=== PATIENT | female | born 1985 | race Caucasian/White ===

== ENCOUNTER 2017-12-19 16:09 | Emergency (ER) | payer BC ==
[2017-12-19 17:09] LABS: ABS Basophils 0.1 10^3/ul (0-0.2); ABS Eosinophils 0.2 10^3/ul (0-0.6); ABS Lymphocytes 2.6 10^3/ul (1.0-4.8); ABS Monocytes 0.6 10^3/ul (0-0.8); ABS Neutrophils 6.4 10^3/ul (1.5-7.7); ABS Nucleated RBC 0 10^3/ul; Eosinophil % 1.8 % (0-6); Hematocrit 43 % (35-47); Hemoglobin 14.6 g/dl (12.0-16.0); Lymphocyte % 26.2 % (25-47); Mean Corpuscular HGB Conc 34 g/dl (31-36); Mean Corpuscular Hemoglobin 30 pg (27-31); Mean Corpuscular Volume 89 fL (80-97); Mean Platelet Volume 7.5 um3 (7.4-10.4); Nucleated Red Blood Cells % 0; Platelet Count 323 10^3/ul (150-450); Red Blood Count 4.83 10^6/ul (4.0-5.4); Red Cell Distribution Width 13 % (10.5-15); White Blood Count 9.9 10^3/ul (3.5-10.8)
[2017-12-19 17:26] LABS: EGFR Non-African American 86.7 (>60)
[2017-12-19 17:31] LABS: INR 1.03 (0.77-1.02)
[2017-12-19 17:39] LABS: Urine Appearance Clear; Urine Blood Negative (Negative); Urine Color Colorless; Urine Ketones Negative (Negative); Urine Protein Negative (Negative); Urine Specific Gravity 1.003 (1.010-1.030); Urine Urobilinogen Negative (Negative)
--- NOTE | 2017-12-19 18:22 | RAD ---
Indication: Chest pain. 2 views of the chest demonstrate no mediastinal shift. Heart is of normal size and configuration. Lung boland are clear. When compared to previous exam of May 13, 2016 no significant change is noted. IMPRESSION: No active cardiopulmonary disease is noted.
[2017-12-19 20:47] VITALS: BP 152/93
[2017-12-19] MEDS ORDERED: Lidocaine 2% VISCOUS* 15 ML UDC PO ONE (20:48)
[2017-12-19] MEDS ORDERED: LORazepam TAB(*) 1 MG PO ONE (20:48)
[2017-12-19] MEDS ORDERED: Al Hydrox/Mg Hydrox/Simet LIQ* 30 ML UDC PO ONE (20:48)
--- NOTE | 2017-12-19 23:30 | ED ---
Ann-Marie Salvador Julia, scribed for Marium Singh MD on 12/19/17 at 1649 . HPI Chest Pain - HPI Summary HPI Summary: This patient is a 32 year old F presenting to [facility] accompanied by her close female friend, Lauro, with a chief complaint of intermittent burning mid-sternal CP for the past two weeks that has worsened today that sometimes spreads across her chest. Her supervisor dials suggested that she come to the ED. Patient denies nausea, vomiting, and SOB. The patient rates the pain 3/10 in severity and a 8/10 at its worse. Symptoms aggravated by exercising and playing the Trombone. Patient was told last year that she has fluid around her heart with fluid buildup around the legs. PMHx includes an eating disorder, gastric ulcers , GI bleed, and anxiety. Patient is scheduled from an endoscopy on 01/04/[address] Medrano. Medications include Ativan, as needed. Patient took Tylenol for pain. Patient has copper IUD. No PMHx for blood clots, HTN, HLD, and DM. Negative FMHx of cardiac disease and VA. Previous Echo results reviewed at [facility] [place] do not show pericardial effusion. - History of Current Complaint Chief Complaint: EDChestWallPain Time Seen by Provider: 12/19/17 16:40 Hx Obtained From: Patient, Family/Keyboard Operator - friend, Medical Records Onset/Duration: Started Weeks Ago, Still Present Timing: Intermittent Initial Severity: Moderate Current Severity: Moderate Pain Intensity: 3 Pain Scale Used: 0-10 Numeric Chest Pain Location: Mid Sternal Chest Pain Radiates: Yes Chest Pain Radiates To:: Other - across chest Character: Burning Aggravating Factor(s): Exertion, Deep Breaths Alleviating Factor(s): Nothing Associated Signs and Symptoms: Negative: Shortness of Breath, Fever, Chills, Nausea, Abdominal Pain, Calf Pain/Swelling, Edema - Additional Pertinent History Primary Care Physician: [id number] - Allergy/Home Medications Allergies/Adverse Reactions: Allergies Allergy/AdvReac Type Severity Reaction Status Date / Time amoxicillin Allergy Severe Anaphylatic Verified 12/19/17 16:20 Shock Penicillins Allergy Severe Anaphylatic Verified 12/19/17 16:20 Shock aspirin Allergy Bleeding Verified 12/19/17 17:11 NSAIDS (Non-Steroidal Allergy Bleeding Verified 12/19/17 17:11 Anti-Inflamma Home Medications: Home Medications L.acidoph,Paracasei, B.lactis [Probiotic] 1 each PO BID 12/19/17 [History Confirmed 12/19/17] LORazepam TAB(*) [Ativan 0.5 MG TAB (*)] 0.5 mg PO BID PRN 12/19/17 [History Confirmed 12/19/17] Venlafaxine EXT RELEASE CAP* [Effexor Xr CAP*] 75 mg PO DAILY 12/19/17 [History Confirmed 12/19/17] PMH/Surg Hx/FS Hx/Imm Hx Previously Healthy: No - eating disorder, pt denies bulimia at present Endocrine/Hematology History: Reports: Hx Anemia Denies: Hx Diabetes Cardiovascular History: Denies: Hx Hypercholesterolemia, Hx Hypertension, Hx Myocardial Infarction GI History: Reports: Hx Gastrointestinal Bleed, Hx Ulcer - gastric History: Reports: Hx Acute Renal Failure Psychiatric History: Reports: Hx Anxiety, Hx Attention Deficit Hyperactivity Disorder, Hx Eating Disorder, Hx Depression, Hx Panic Disorder Denies: Hx Post Traumatic Stress Disorder, Hx Inpatient Treatment, Hx Community Mental Health Tx, Hx Schizophrenia, Hx Bipolar Disorder, Hx Suicide Attempt, Hx of Violent Episodes Against Others, Hx Substance Abuse, Other Psychiatric Issues/Disorders Infectious Disease History: No Infectious Disease History: Denies: Traveled Outside the [place] in Last 30 Days - Family History Known Family History: Negative: Cardiac Disease, Hypertension, Diabetes - Social History Occupation: Employed Full-time Alcohol Use: None Alcohol Amount: denies Substance Use Type: Reports: None Substance Use Comment - Amount & Last Used: denies Smoking Status (MU): Never Smoked Tobacco Have You Smoked in the Last Year: No Review of Systems Constitutional: Negative Positive: Chest Pain Negative: Shortness Of Breath Negative: Vomiting, Nausea Musculoskeletal: Negative Skin: Negative Neurological: Negative Psychological: Normal All Other Systems Reviewed And Are Negative: Yes Physical Exam - Summary Physical Exam Summary: Appearance: well appearing, minimal pain distress, Well-nourished Skin: Warm, color reflects adequate perfusion Head: Normal Head/Face inspection, Atraumatic Eyes: Conjunctiva clear ENT: Normal inspection Neck: Supple, no nodes, no JVD. Respiratory: Lungs clear, Normal breath sounds, no respiratory distress Cardio: RRR, No murmur, pulses normal, brisk capillary refill, chest pain is not reproducible Abdomen: soft, nontender, no masses, Liver, spleen nonpalp Bowel sounds: present Musculoskeletal: Strength Intact/ ROM intact. No calf tenderness. No edema. Psychological: Normal Neuro: Alert, muscle tone normal, no focal deficit Triage Information Reviewed: Yes Vital Signs On Initial Exam: Initial Vitals Temp Pulse Resp BP Pulse Ox 99.3 F 72 16 144/101 99 12/19/17 16:17 12/19/17 16:17 12/19/17 16:17 12/19/17 16:17 12/19/17 16:17 Vital Signs Reviewed: Yes Diagnostics - Vital Signs Vital Signs Temp Pulse Resp BP Pulse Ox 12/19/17 16:17 99.3 F 72 16 144/101 99 - Laboratory Lab Results: Lab Results 12/19/17 12/19/17 12/19/17 Range/Units 17:02 17:02 17:02 WBC 9.9 (3.5-10.8) 10^3/ul RBC 4.83 (4.0-5.4) 10^6/ul Hgb 14.6 (12.0-16.0) g/dl Hct 43 (35-47) % MCV 89 (80-97) fL MCH 30 (27-31) pg MCHC 34 (31-36) g/dl RDW 13 (10.5-15) % Plt Count 323 (150-450) 10^3/ul MPV 7.5 (7.4-10.4) um3 Neut % (Auto) 64.3 (38-83) % Lymph % (Auto) 26.2 (25-47) % [place] % (Auto) 6.4 (0-7) % Eos % (Auto) 1.8 (0-6) % Baso % (Auto) 1.3 (0-2) % Absolute Neuts (auto) 6.4 (1.5-7.7) 10^3/ul Absolute Lymphs (auto) 2.6 (1.0-4.8) 10^3/ul Absolute Monos (auto) 0.6 (0-0.8) 10^3/ul Absolute Eos (auto) 0.2 (0-0.6) 10^3/ul Absolute Basos (auto) 0.1 (0-0.2) 10^3/ul Absolute Nucleated RBC 0 10^3/ul Nucleated RBC % 0 INR (Anticoag Therapy) 1.03 H (0.77-1.02) APTT 31.9 (26.0-36.3) seconds D-Dimer, Quantitative < 200 (Less Than 230) ng/mL Sodium 139 (139-145) mmol/L Potassium 4.1 (3.5-5.0) mmol/L Chloride 104 (101-111) mmol/L Carbon Dioxide 27 (22-32) mmol/L Anion Gap 8 (2-11) mmol/L BUN 24 (6-24) mg/dL Creatinine 0.78 (0.51-0.95) mg/dL Est GFR ( Amer) 111.5 (>60) Est GFR (Non-Af Amer) 86.7 (>60) BUN/Creatinine Ratio 30.8 H (8-20) Glucose 98 (70-100) mg/dL Lactic Acid (0.5-2.0) mmol/L Calcium 9.5 (8.6-10.3) mg/dL Magnesium 2.1 (1.9-2.7) mg/dL Total Bilirubin 0.30 (0.2-1.0) mg/dL AST 14 (13-39) U/L ALT 12 (7-52) U/L Alkaline Phosphatase 66 (34-104) U/L Total Creatine Kinase 52 (10-223) U/L CK-MB (CK-2) 1.2 (0.6-6.3) ng/mL Troponin I 0.00 (<0.04) ng/mL B-Natriuretic Peptide ( - 100) pg/mL Total Protein 7.6 (6.4-8.9) g/dL Albumin 4.5 (3.2-5.2) g/dL Globulin 3.1 (2-4) g/dL Albumin/Globulin Ratio 1.5 (1-3) TSH 3.07 (0.34-5.60) mcIU/mL Thyroxine (T4) 5.59 L (6.09-12.23) mcg/mL Urine Color Urine Appearance Urine pH (5-9) Ur Specific Warren (1.010-1.030) Urine Protein (Negative) Urine Ketones (Negative) Urine Blood (Negative) Urine Nitrate (Negative) Urine Bilirubin (Negative) Urine Urobilinogen (Negative) Ur Leukocyte Esterase (Negative) Urine Glucose (Negative) 12/19/17 12/19/17 12/19/17 Range/Units 17:02 17:02 17:22 WBC (3.5-10.8) 10^3/ul RBC (4.0-5.4) 10^6/ul Hgb (12.0-16.0) g/dl Hct (35-47) % MCV (80-97) fL MCH (27-31) pg MCHC (31-36) g/dl RDW (10.5-15) % Plt Count (150-450) 10^3/ul MPV (7.4-10.4) um3 Neut % (Auto) (38-83) % Lymph % (Auto) (25-47) % Butte % (Auto) (0-7) % Eos % (Auto) (0-6) % Baso % (Auto) (0-2) % Absolute Neuts (auto) (1.5-7.7) 10^3/ul Absolute Lymphs (auto) (1.0-4.8) 10^3/ul Absolute Monos (auto) (0-0.8) 10^3/ul Absolute Eos (auto) (0-0.6) 10^3/ul Absolute Basos (auto) (0-0.2) 10^3/ul Absolute Nucleated RBC 10^3/ul Nucleated RBC % INR (Anticoag Therapy) (0.77-1.02) APTT (26.0-36.3) seconds D-Dimer, Quantitative (Less Than 230) ng/mL Sodium (139-145) mmol/L Potassium (3.5-5.0) mmol/L Chloride (101-111) mmol/L Carbon Dioxide (22-32) mmol/L Anion Gap (2-11) mmol/L BUN (6-24) mg/dL Creatinine (0.51-0.95) mg/dL Est GFR ( Amer) (>60) Est GFR (Non-Af Amer) (>60) BUN/Creatinine Ratio (8-20) Glucose (70-100) mg/dL Lactic Acid 1.0 (0.5-2.0) mmol/L Calcium (8.6-10.3) mg/dL Magnesium (1.9-2.7) mg/dL Total Bilirubin (0.2-1.0) mg/dL AST (13-39) U/L ALT (7-52) U/L Alkaline Phosphatase (34-104) U/L Total Creatine Kinase (10-223) U/L CK-MB (CK-2) (0.6-6.3) ng/mL Troponin I (<0.04) ng/mL B-Natriuretic Peptide 15 ( - 100) pg/mL Total Protein (6.4-8.9) g/dL Albumin (3.2-5.2) g/dL Globulin (2-4) g/dL Albumin/Globulin Ratio (1-3) TSH (0.34-5.60) mcIU/mL Thyroxine (T4) (6.09-12.23) mcg/mL Urine Color Colorless Urine Appearance Clear Urine pH 6.0 (5-9) Ur Specific Warren 1.003 L (1.010-1.030) Urine Protein Negative (Negative) Urine Ketones Negative (Negative) Urine Blood Negative (Negative) Urine Nitrate Negative (Negative) Urine Bilirubin Negative (Negative) Urine Urobilinogen Negative (Negative) Ur Leukocyte Esterase Negative (Negative) Urine Glucose Negative (Negative) 12/19/17 Range/Units 20:11 WBC (3.5-10.8) 10^3/ul RBC (4.0-5.4) 10^6/ul Hgb (12.0-16.0) g/dl Hct (35-47) % MCV (80-97) fL MCH (27-31) pg MCHC (31-36) g/dl RDW (10.5-15) % Plt Count (150-450) 10^3/ul MPV (7.4-10.4) um3 Neut % (Auto) (38-83) % Lymph % (Auto) (25-47) % [place] % (Auto) (0-7) % Eos % (Auto) (0-6) % Baso % (Auto) (0-2) % Absolute Neuts (auto) (1.5-7.7) 10^3/ul Absolute Lymphs (auto) (1.0-4.8) 10^3/ul Absolute Monos (auto) (0-0.8) 10^3/ul Absolute Eos (auto) (0-0.6) 10^3/ul Absolute Basos (auto) (0-0.2) 10^3/ul Absolute Nucleated RBC 10^3/ul Nucleated RBC % INR (Anticoag Therapy) (0.77-1.02) APTT (26.0-36.3) seconds D-Dimer, Quantitative (Less Than 230) ng/mL Sodium (139-145) mmol/L Potassium (3.5-5.0) mmol/L Chloride (101-111) mmol/L Carbon Dioxide (22-32) mmol/L Anion Gap (2-11) mmol/L BUN (6-24) mg/dL Creatinine (0.51-0.95) mg/dL Est GFR ( Amer) (>60) Est GFR (Non-Af Amer) (>60) BUN/Creatinine Ratio (8-20) Glucose (70-100) mg/dL Lactic Acid (0.5-2.0) mmol/L Calcium (8.6-10.3) mg/dL Magnesium (1.9-2.7) mg/dL Total Bilirubin (0.2-1.0) mg/dL AST (13-39) U/L ALT (7-52) U/L Alkaline Phosphatase (34-104) U/L Total Creatine Kinase (10-223) U/L CK-MB (CK-2) (0.6-6.3) ng/mL Troponin I 0.00 (<0.04) ng/mL B-Natriuretic Peptide ( - 100) pg/mL Total Protein (6.4-8.9) g/dL Albumin (3.2-5.2) g/dL Globulin (2-4) g/dL Albumin/Globulin Ratio (1-3) TSH (0.34-5.60) mcIU/mL Thyroxine (T4) (6.09-12.23) mcg/mL Urine Color Urine Appearance Urine pH (5-9) Ur Specific Warren (1.010-1.030) Urine Protein (Negative) Urine Ketones (Negative) Urine Blood (Negative) Urine Nitrate (Negative) Urine Bilirubin (Negative) Urine Urobilinogen (Negative) Ur Leukocyte Esterase (Negative) Urine Glucose (Negative) Result Diagrams: 12/19/17 17:02 12/19/17 17:02 Lab Statement: Any lab studies that have been ordered have been reviewed, and results considered in the medical decision making process. - Radiology CXR Radiology Interpretation Completed By: Radiologist - No active cardiopulmonary disease is noted. ED Physician has reviewed this report. - EKG 1611 Cardiac Rate: NL EKG Rhythm: Sinus Rhythm - [address] Segment: Normal Ectopy: None EKG Interpretation: nml AVIVCT, nml QTc, nml axis EKG Comparison: Other - no prior 1647 Cardiac Rate: NL EKG Rhythm: Sinus Rhythm - [address] Segment: Normal Ectopy: None EKG Interpretation: nml AVIVCT, nml QTc, nml axis EKG Comparison: No Significant Change - from previous EKG today Re-Evaluation - Re-Evaluation 1 Re-Evaluation Time: 20:45 Change: Unchanged Comment: Pt still has mid sternal CP. Would like to try a GI cocktail. Pt requests Ativan. Blood Pressure 158/73. Heart Rate of 72 BPM. Pt wants to keep endo on 01/04/18 because of her work schedule. Asks what she should do for medications until then. Second Eval Re-Evaluation Time: 21:10 Change: Improved Comment: Likes the GI cocktail. States pain is relieved. Advised to call Dr. Medrano's office in am to ask about medications for this pain, prior to endoscopy. Chest Pain Course/Dx - Course Course Of Treatment: 32 year old F with hx of eating disorder, GI bleed and gastric ulcers, and per pt "fluid around the heart" presents to [facility] with burning chest pain. Pt will not be given ASA due to history of gastric ulcers and GI bleed. EKG and CXR reveal no acute pathology. Troponin is negative x 2. D dimer is less than 200. Pt continues to have CP in ED and agrees to a GI cocktail with Viscous Lidocaine and Maalox. Pt is given Ativan 0.5mg po in ED. Pt is hypertensive in ED. Pain is imporved with GI cocktail. Pt is discharged and advised to call Dr. Medrano in am, and to keep her endoscopy appt. Pt is agreeable with plan - Chest Pain Differential Diagnosis/HQI/PQRI: Acute VA, ACS, CHF, Chest Wall, GI Disease, Pulmonary Embolism - Diagnoses Provider Diagnoses: Chest pain, Gastric ulcer, Elevated BP without diagnosis of hypertension Discharge - Sign-Out/Discharge Documenting (check all that apply): Discharge/Admit/Transfer - home - Discharge Plan Condition: Stable Disposition: HOME Patient Education Materials: Chest Pain (ED) Referrals: Ina King MD [Primary Care Provider] - 2 Days Parish Medrano MD [Medical Doctor] - (keep your appointment for your endoscopy on January 04, 2018 ) Additional Instructions: Based on the evaluation in the ER tonight, we think the most likely cause of your chest pain is GI related. We have given you a copy of your labs and xray. We gave you a GI cocktail with viscous lidocaine and mylanta. We also gave you ativan 0.5mg at 8:50pm. Your blood pressure was elevated while you were in the ER. You will need to be rechecked for this within a month with Dr. King. You should call Dr. Medrano's office to see if they suggest that you take omeprazole or another medication for your discomfort before your endoscopy. Return to the ER if you have new or worsening symptoms. - Billing Disposition and Condition Condition: STABLE Disposition: HOME The documentation as recorded by the Ann-Marie graff Julia accurately reflects the service I personally performed and the decisions made by , Marium Singh MD.
== END 2017-12-19 21:11 | disposition home or self-care (01) ==
LOC: ED 16:09
DX: R07.89 Other chest pain (principal); K25.9 Gastric ulcer, unspecified as acute or chronic, without hemorrhage or perforation; R03.0 Elevated blood-pressure reading, without diagnosis of hypertension; Z88.3 Allergy status to other anti-infective agents; Z88.0 Allergy status to penicillin; Z88.6 Allergy status to analgesic agent
CPT/HCPCS: 36415; 71046; 80053; 81003; 82550; 82553; 83605; 83735; 83880; 84436; 84443; 84484; 85025; 85379; 85610; 85730; 93005; 99283; A9270-GY